=== PATIENT | male | born 1975 | race Caucasian/White ===

== ENCOUNTER 2018-10-02 05:54 | Observation (INO) ==
--- NOTE | 2018-10-02 06:45 | PROVIDER DOCUMENTATION ---
HPI-General Adult - General Chief Complaint: Chest Pain Stated Complaint: CHEST PAIN/SOB/ARM PAIN/HISTORY OF HEART PROBLEM Time Seen by Provider: 10/02/18 06:26 Source: patient Allergies/Adverse Reactions: Patient Allergies Allergy/AdvReac Type Severity Reaction Status Date / Time Penicillins Allergy Unknown Unknown Verified 07/08/13 17:57 Home Medications: Home Medication List Medication Instructions Recorded Confirmed Last Taken Type Ibuprofen [Motrin] 800 mg PO Q8H PRN PRN #30 tablet 11/10/12 10/02/18 Unknown Rx Metoprolol [Lopressor] 75 mg PO BID 11/10/12 10/02/18 07/08/13 08:00 History Fish Oil/Dha/Epa [Fish Oil 1,200 1 each PO DAILY 07/08/13 10/02/18 07/08/13 07:00 History mg Fish Oil] Multivitamin [Multi-Vitamin Daily] 1 each PO DAILY 07/08/13 10/02/18 07/08/13 07:00 History Omeprazole [Prilosec] 40 mg PO DAILY 07/08/13 07/08/13 07/08/13 07:00 History 40 Aspirin 81 mg PO DAILY #0 chewtab 07/09/13 Unknown Rx Atorvastatin Calcium [Lipitor] 10 mg PO QHS #0 tablet 07/09/13 10/02/18 Unknown Rx Hydrocodone/APAP 7.5 mg/325 mg 1 ea PO Q6H PRN PRN #15 tab 10/29/17 Unknown Rx [[place]-7.5] Ibuprofen [Motrin] 800 mg PO Q8H PRN PRN #20 tab 10/29/17 Unknown Rx Omeprazole 20 mg PO DAILY #20 tablet. 10/29/17 Unknown Rx - History of Present Illness -Gen Adult Nature of Presenting Problems: he presents with multiple complaints. He has been having a pressure like ant CP intermittently for at least week. There is assoc SOB, no palpitations, no N/V. Nothing he does makes it better nor worse. He also says that he has trouble lifting his arms, and both hands tingle. This may happen with or without the CP. He says he has seen his PCP, who told him was due to the way he held steering wheel when drove. He later admitted to having had neck pain for a long time. He also says he has had blood in his stool for 2 days, initially was bright red, but yesterday it was brown. 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 Location of Pain/Injury: reports: chest Pain Radiation: reports: no radiation Quality of Pain: reports: pressure Timing: reports: intermittent Context/Activities at Onset: reports: none Modifying Factors: improves with: nothing Similar Symptoms Previously?: Yes Recently seen or treated by another doctor?: Yes Review of Systems - Adult - REVIEW OF SYSTEMS - ADULT Constitutional: reports: no symptoms reported Eyes: reports: no symptoms reported Ears, Nose, Mouth & Throat: reports: no symptoms reported Cardiovascular: reports: see HPI Respiratory: reports: see HPI Gastrointestinal: reports: see HPI Genitourinary: reports: no symptoms reported Musculoskeletal: reports: see HPI Integumentary: reports: no symptoms reported Neurological: reports: no symptoms reported Psychiatric: reports: no symptoms reported Endocrine: reports: no symptoms reported Hematologic/Lymphatic: reports: no symptoms reported Allergic/Immunologic: reports: no symptoms reported Past History - Adult - PAST MEDICAL HISTORY-ADULT Review of Records: reports: Medications Reviewed Cardiovascular: reports: HTN, hyperlipidemia, [place] ((4 light)) Respiratory: reports: denies history Gastrointestinal: reports: denies history Genitourinary: reports: denies history Musculoskeletal: reports: denies history Neurological: reports: denies history Psychiatric: reports: anxiety, depression - IMMUNIZATION STATUS Childhood Immunizations: See Nurse Assessment Flu Vaccine: See Nurse Assessment - SOCIAL HISTORY Smoking: cigarettes Provider spent 3-5 mins advising pt. on dangers of tobacco.: Discussed manners to quit use, and f/u contacts for add'l counseling. Physical Exam-General - PHYSICAL EXAM-ADULT Initial Vital Signs Reviewed: Yes - CONSTITUTIONAL General Appearance: appears well, alert, no apparent distress - EYES Eyes: PERRL/EOMI, pink conjunctivae - HEAD, EARS, NOSE, MOUTH & THROAT HENMT: normocephalic/atraumatic, moist mucous membranes, normal ENT inspection, pharynx normal - NECK Neck: full range of motion, supple, tender lateral (mild, mid) - RESPIRATORY Respiratory: lungs clear, normal breath sounds, no pleuratic chest pain, no respiratory distress, no accessory muscle use - CARDIOVASCULAR Cardiovascular: regular rate, rhythm, no edema - GASTROINTESTINAL (ABDOMEN) Abdominal Exam: normal bowel sounds, non tender, soft - MUSCULOSKELETAL Back Exam: normal inspection, no CVA tenderness, no vertebral tenderness Extremity: normal range of motion, non-tender - SKIN Integumentary: normal color, normal turgor, warm/dry - NEUROLOGIC Neurologic: sas statistical programmer II-XII nml as tested, grossly normal, no motor/sensory deficits - PSYCHIATRIC Psych/Mental Status: normal mood/affect, normal thought content, normal thought process, oriented x 3 Progress - PLAN OF CARE/RESULTS Progress/Plan/Lab Results: Vital Signs - 8 hr 10/02/18 06:03 Temperature 98.7 F Pulse Rate 89 Respiratory Rate 17 Blood Pressure 138/91 O2 Sat by Pulse Oximetry 94 L Orders Category Date Time Status Nursing- Obtain EKG ONCE Care 10/02/18 06:37 Ordered CERVICAL SPINE COMPLETE [RAD] Stat Exams 10/02/18 06:37 Ordered CHEST-2 VIEWS [RAD] Stat Exams 10/02/18 06:37 Ordered CBC WITH DIFF [HEME] Stat Lab 10/02/18 06:37 Uncollected COMPREHENSIVE METABOLIC PANEL [CHEM] Stat Lab 10/02/18 06:37 Uncollected OCCULT BLOOD DIAGNOSTIC [STOOL] Stat Lab 10/02/18 06:37 Uncollected TROPONIN T Stat Lab 10/02/18 06:37 Uncollected EKG [EKG] Stat Ther 10/02/18 06:00 Ordered EKG [EKG] Stat Ther 10/02/18 06:37 Ordered Result Diagrams: 10/02/18 06:31 10/02/18 06:31 - EKG 1 Time of EKG reading by physician:: 06:19 EKG Read and Signed by:: Martin Long EKG Interpretation (*Must complete 3 of following elements*): Abnormal Rate: 87 Rhythm: NSR QRS: normal ST Wave: non-specific ST changes - CONSULTS/PCP/HOSPITALIST Notification #1 *Consult/PCP/Hospitalist*: Stephanie TRACTOR TRAILER DRIVER for Dr Marquez Time Discussed: 09:45 Consult Disposition: Will see in ED, Admit - CHANGE OF SHIFT REPORT (ED Provider) 1 Report Given and Care Transferred to:: Cornelius Time of Transfer: 07:00 Departure - Departure Date of Disposition Decision: 10/02/18 Time of Disposition Decision: 09:45 DIAGNOSIS: Chest pain, Cervical radiculopathy Disposition: ADMITTED INPATIENT Certified Medical Emergency: Emergent Condition: Fair Referrals and Follow-Ups: Navarro Pino [Primary Care Provider] - - Critical Care Note This patient required my direct & personal management of CC.: No Attestation - Physician/ IGNACIO Attestation Patient care was provided by Advanced Practice Provider:: No The physician spent face to face time with patient:: Yes Advanced Practice Provider documentation review:: Supervising physician onsite and consulted in the evaluation and care of this patient. The physician did have a face to face encounter with the patient.
[2018-10-02 07:02] LABS: BASO# 0.03 X1000 (0.0-0.2); BASO% 0.4 % (0.0-0.8); EOS# 0.16 X1000 (0.0-0.7); EOS% 1.9 % (0.0-10.0); HEMATOCRIT 44.3 % (42.0-52.0); HEMOGLOBIN 15.9 g/dL (14.0-18.0); LYMPH# 3.06 X1000 (1.2-3.4); LYMPH% 36.2 % (20.5-51.1); MCH 30.8 PG (27-31); MCHC 35.9 g/dL (33-37); MCV 85.7 FL (81-99); MONO# 0.86 X1000 (0.11-0.59); MONO% 10.2 % (1.7-9.3); MPV 10.2 FL (7.4-10.4); NEUT# 4.35 X1000 (1.4-6.5); NEUT% 51.3 % (42.2-75.2); PLT 324 X1000 (130-400); RBC 5.17 XMIL (4.7-6.1); RDW 13.6 % (11.5-14.5); WBC 8.46 X1000 (4.8-10.8)
--- NOTE | 2018-10-02 07:03 | Diag Imaging Result Doc PS360 ---
EXAM: CERVICAL SPINE COMPLETE 10/02/2018 HISTORY: neck pain, arms tingle TECHNIQUE: Cervical spine series with obliques seven views COMMENT: There is disc space narrowing at C3-4, and at C6-7. There is posterior osteophyte formation at C6-7 and to some extent at C3-4. There is anterior osteophyte formation at C5-6. There is osteophytic encroachment on the intervertebral foramina at the C3-4 and C6-7 levels on the right and at C5-6 and C6-7 on the left. There is apparent erosive facet arthropathy on the left at C6-7. IMPRESSION: Degenerative changes as described with foraminal stenosis at C3-4 and C6-7 on the right and C5-6 and C6-7 on the left. Electronically signed by Alok Bullock 10/02/2018 7:01 AM
--- NOTE | 2018-10-02 07:04 | Diag Imaging Result Doc PS360 ---
EXAM: CHEST-2 VIEWS 10/02/2018 HISTORY: CP TECHNIQUE: PA and lateral chest COMMENT: There are calcified nodes in the right paratracheal subcarinal and left hilar regions. There is no evidence of acute cardiac or pulmonary disease. There is a granuloma present in the lingula. The appearance of the chest has not changed significantly since 10/29/2017. IMPRESSION: Granulomatous changes. No evidence of acute disease. Electronically signed by Alok Bullock 10/02/2018 7:02 AM
--- NOTE | 2018-10-02 07:13 | EKG Report ---
Test Performed on : 10/02/2018 06:07:38 AM Test Reason : CP Blood Pressure : / mmHG Vent. Rate : 087 BPM Atrial Rate : 087 BPM P-R Int : 122 ms QRS Dur : 086 ms QT Int : 346 ms P-R-T Axes : 044 -03 -26 degrees QTc Int : 416 ms Normal sinus rhythm. Nonspecific T wave abnormality Abnormal ECG When compared with ECG of 08-JUL-2013 16:50, No significant change was found Unconfirmed Result
[2018-10-02 07:21] LABS: AGAP 13; ALB/GLOB RATIO 1.9; ALBUMIN 4.6 g/dL (3.5-5.0); ALKALINE PHOSPHATASE 87 U/L (32-122); BUN 13 mg/dL (8-22); CALCIUM 10.1 mg/dL (8.8-10.2); CHLORIDE 102 mmol/L (98-107); COSMO 280; CREATININE 0.8 mg/dL (0.7-1.2); ESTIMATED GFR > 60; GLUCOSE 103 mg/dL (70-104); GOT 31 U/L (10-34); GPT 52 U/L (10-44); SODIUM 140 mmol/L (136-145); TCO2 25 mmol/L (25-35); TOTAL BILIRUBIN 0.35 mg/dL (0.20-1.00)
[2018-10-02] MEDS ORDERED: ZOFRAN IV PRN (10:54)
--- NOTE | 2018-10-02 11:02 | HISTORY AND PHYSICAL ---
PRIMARY CARE PHYSICIAN: Dr. Navarro Pino. CHIEF COMPLAINT: Left-sided chest pain intermittently over the past week, with shortness of breath, dizziness, lightheadedness, also having numbness and tingling down both extremities. Also reports 2 days ago having bright red blood in stool. HISTORY OF PRESENTING ILLNESS: This is a 42-year-old male who presents to [facility] ER with complaints of intermittent left-sided chest pain over the past week that he describes as a pressure-like feeling. States he has also had some associated shortness of breath, dizziness, lightheadedness. States that he has been having trouble with both arms numb and tingling. 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 He also states that 2 days ago, he had some bright red blood in his stool, but yesterday he noted that it was brown stool. His workup showed a hemoglobin and hematocrit of 15.9 and 44.3. First troponin was negative. ProBNP is 7. His EKG showed normal sinus rhythm at 87. We did a cervical spine x-ray that showed degenerative changes with foraminal stenosis at C3 and 4 and C6 and 7 on the right, and C5 and 6 and C6 and 7 on the left. His chest x-ray showed granulomatous changes, but no evidence of acute disease, so he will be admitted for further evaluation and treatment. PAST MEDICAL HISTORY: Reported coronary artery disease, hypertension, dyslipidemia, and gout. PAST SURGICAL HISTORY: Hernia repair. FAMILY HISTORY: His grandmother had CHF. SOCIAL HISTORY: Currently lives with family. Smokes 1 pack of cigarettes a day, and has done so for 20 years. Denied any alcohol or illicit drug use. ALLERGIES: Penicillin. HOME MEDICATIONS: We will need to obtain a current list, reconcile, review, and restart as appropriate. Will place an order for nursing to update and confirm home medications. IMAGING AND LABORATORY DATA: Laboratory data showed a white blood cell count of 8.46, hemoglobin 15.9, hematocrit 44.3, platelets 324,000. Sodium of 140, potassium 5, chloride 102, CO2 of 25, BUN of 13, creatinine 0.8, glucose 103. Troponin less than 0.010. ProBNP of 7. EKG showed normal sinus rhythm at 87. Cervical spine x-ray showed degenerative changes with foraminal stenosis at C3-4 and C6 and 7 on the right, and C5 and 6 and C6 and 7 on the left. Chest x-ray showed granulomatous changes, but no evidence of acute disease. REVIEW OF SYSTEMS: He denied any fever, chills, blurred vision. He was positive for dizziness, lightheadedness, left-sided chest pain that was intermittent, with some shortness of breath. Denied any nausea, vomiting. States he did have some blood in his stool 2 days ago, but that has resolved, and denies any burning or hurting with urination. PHYSICAL EXAMINATION: VITAL SIGNS: On arrival, he had a temperature of 98.7 degrees, pulse 89, respirations 17, blood pressure 138/91, saturating 94% on room air. GENERAL: This is a 42-year-old male who is lying in the bed and answers questions appropriately. HEENT: Normocephalic, atraumatic. Normal ENT inspection. Oropharynx and nares are clear. Eyes: Pupils are equal, round, and reactive to light and accommodation. Extraocular movements are intact. NECK: Normal inspection. Normal range of motion. LUNGS: Clear to auscultation bilaterally with equal lung expansion and chest wall movement. HEART: Regular rate and rhythm. No murmurs, rubs, or gallops. ABDOMEN: Soft, nontender, nondistended. Bowel sounds are present x4 quadrants. MUSCULOSKELETAL: He had 5/5 strength x4 extremities. NEUROLOGICAL: The cranial nerves II through XII appear grossly intact. ASSESSMENT: 1. Chest pain. 2. Hypertension. 3. Hyperlipidemia. 4. Reported rectal bleeding 2 days ago of bright red blood. 5. Tobacco abuse. PLAN: Will admit him to the medical unit, place on telemetry, O2 per protocol. Place on a healthy heart diet. Will do serial cardiac enzymes. Will place SCDs for DVT prophylaxis. Will give him Protonix 40 mg p.o. daily, first dose now. We will check a stool for occult blood. Recheck in the a.m., a CBC, BMP, and a lipid profile. Again, we need to update and confirm home medications, and then review and restart as appropriate. Further orders after being seen by attending. We also gave a nicotine patch 21 mg transdermally daily, and discussed smoking cessation. The patient verbalized understanding. Dictated by LALITA Pina for Gómez Marquez MD cc: LALITA Pina MD Agree with the above. the following is my own face to face assessment. failure atypical chest pain, heart: RRR, lungs: CTAB. some report of hematochezia a couple days ago but none since and H/H normal now. likely hemorrhoids. will rule out for ACS. [place]
[2018-10-02] MEDS: ASPIRIN PO SCH (11:03)
[2018-10-02] MEDS ORDERED: ASPIRIN ONE (11:03)
[2018-10-02] MEDS: PROTONIX PO SCH (14:17)
[2018-10-02] MEDS: PREDNISONE PO SCH (14:17)
[2018-10-02] MEDS: NICODERM PATCH TD SCH (14:18)
[2018-10-02] MEDS: DUONEB (A & A) INH SCH ×3 (16:04→23:32)
--- NOTE | 2018-10-02 16:16 | ECHO REPORT ---
ORDER DATE: 10/02/2018 INTERPRETING PHYSICIAN: Dr. Jose Luis Noyola ECHOCARDIOGRAPHIC MEASUREMENTS: 1. Interventricular septum 1. 2. Left ventricular posterior wall 1.1. 3. Diastolic diameter 4.5. 4. Left atrium 3.2. 5. Aorta 3. FINDINGS: 1. Aortic valve leaflets were trileaflet. 2. Mitral valve was normal. 3. Tricuspid valve was normal. 4. Pulmonic valve was normal. 5. Normal left ventricular cavity size. Estimated ejection fraction of 65%. 6. There is trace mitral regurgitation. 7. Peak velocity across the aortic valve less than 2 m/sec. There is no aortic stenosis or regurgitation. 8. There is trivial tricuspid regurgitation. Peak velocity across the tricuspid valve was 2 m/sec. 9. Pulmonary systolic pressure of 26 mmHg. 10. There is no pericardial effusion or obvious intracardiac mass or thrombus seen. cc: MD Aimee Quiroz CRNP
[2018-10-02 16:19] LABS: AGAP 16; BUN 13 mg/dL (8-22); CALCIUM 10.4 mg/dL (8.8-10.2); CHLORIDE 105 mmol/L (98-107); CK PROFILE 136 U/L (24-204); COSMO 294; CREATININE 1.1 mg/dL (0.7-1.2); ESTIMATED GFR > 60; GLUCOSE 85 mg/dL (70-104); POTASSIUM 4.7 mmol/L (3.5-5.1); SODIUM 148 mmol/L (136-145); TCO2 27 mmol/L (25-35)
[2018-10-02] MEDS: TYLENOL PO PRN (21:53)
[2018-10-03 03:13] LABS: BASO# 0.01 X1000 (0.0-0.2); BASO% 0.1 % (0.0-0.8); EOS# 0.01 X1000 (0.0-0.7); EOS% 0.1 % (0.0-10.0); HEMATOCRIT 44.3 % (42.0-52.0); HEMOGLOBIN 15.9 g/dL (14.0-18.0); IMM GRAN# 0.04 X1000 (0.0-0.04); IMM GRAN% 0.3 % (0.0-0.5); LYMPH# 1.18 X1000 (1.2-3.4); LYMPH% 9.9 % (20.5-51.1); MCH 30.8 PG (27-31); MCHC 35.9 g/dL (33-37); MCV 85.9 FL (81-99); MONO# 0.59 X1000 (0.11-0.59); MONO% 4.9 % (1.7-9.3); NEUT% 84.7 % (42.2-75.2); PLT 349 X1000 (130-400); RBC 5.16 XMIL (4.7-6.1); RDW 13.4 % (11.5-14.5); WBC 11.93 X1000 (4.8-10.8)
[2018-10-03] MEDS: DUONEB (A & A) INH SCH ×3 (03:42→11:09)
[2018-10-03] MEDS: TYLENOL PO PRN (05:21)
[2018-10-03] MEDS ORDERED: PRILOSEC PO SCH (07:00)
[2018-10-03] MEDS: PREDNISONE PO SCH (08:38)
[2018-10-03] MEDS: PROTONIX PO SCH (08:38)
[2018-10-03] MEDS: NICODERM PATCH TD SCH (08:39)
[2018-10-03] MEDS: ASPIRIN PO SCH (08:39)
[2018-10-03 09:41] LABS: AGAP 16; BUN 19 mg/dL (8-22); CALCIUM 9.9 mg/dL (8.8-10.2); CHLORIDE 101 mmol/L (98-107); COSMO 282; CREATININE 1.1 mg/dL (0.7-1.2); ESTIMATED GFR > 60; GLUCOSE 172 mg/dL (70-104); POTASSIUM 5.1 mmol/L (3.5-5.1); SODIUM 138 mmol/L (136-145); TCO2 21 mmol/L (25-35)
[2018-10-03 11:39] VITALS: BP 134/85
--- NOTE | 2018-10-08 13:03 | DISCHARGE SUMMARY ---
ADMISSION DATE: 10/02/2018 DISCHARGE DATE: 10/03/2018 PERTINENT STUDIES: Initial chest x-ray: No acute process. Initial hemoglobin 15.9 and discharge hemoglobin 15.9. Troponins were negative x3. DISCHARGE DIAGNOSES: 1. Atypical chest pain. 2. Hematochezia. 3. Likely hemorrhoids. 4. Hypertension. 5. Hyperlipidemia. 6. Tobacco abuse. 7. Likely chronic obstructive pulmonary disease with mild exacerbation. DISCHARGE VITAL SIGNS: Temperature 98.1 degrees, pulse 93, respirations 14, blood pressure 134/85, O2 saturation 99% on room air. DISCHARGE DIET: Low-salt. DISCHARGE MEDICATIONS: 1. Atorvastatin 10 mg p.o. at bedtime. 2. Nicotine patch 20 mg daily. 3. Omeprazole. 4. Symbicort inhaler. 5. Medrol Dosepak. HOSPITAL COURSE: The patient presented complaining primarily of chest pain and was also having some shortness of breath over the last several days. He has had a nonproductive cough. He also reported one episode of hematochezia a couple days prior to admission but none since. The patient was placed on observation for further evaluation. Troponins remained negative. EKG had no significant changes. On admission he was noted to have some wheezing and mildly decreased air entry. The patient had a significant smoking history and suspect he has a previous diagnosis of COPD with mild exacerbation. He was never hypoxic. He improved rapidly with steroids and nebulizers. He was placed on a Medrol Dosepak and Symbicort at discharge. He is to continue his previous albuterol inhaler as needed. Symbicort was added as patient endorsed using albuterol inhaler multiple times every day. The patient was also placed on a statin as when his lipids were checked his total cholesterol was 213, his LDL was 171, and HDL was 48. The patient did have some mild hyperglycemia, but this was thought to be steroid induced rather than diabetes. The patient's chest pain resolved spontaneously. FOLLOWUP AND PLAN: The patient is discharged home. He is to follow up with PCP. Continue Medrol Dosepak for likely chronic obstructive pulmonary disease exacerbation. Patient was counseled on smoking cessation and was given a script for a nicotine patch. The patient was placed on a Symbicort inhaler because of report of using albuterol inhaler every day for wheezing. Greater than 30 minutes was spent arranging discharge and counseling the patient.
== END 2018-10-03 15:14 | disposition home or self-care (01) ==
LOC: ED 05:54 → EDIPHOLD 05:54 → 3N 13:31
PROVIDERS: ATTEND Internal Medicine